=== PATIENT | female | born 1940 | race African-American/Black ===

== ENCOUNTER 2016-07-19 02:17 | Inpatient (IN) | payer OTHER ==
[2016-07-14 14:22] LABS: MANUAL DIFF NEEDED? NO
[2016-07-14 14:26] LABS: BASO% 0.3 % (0.0-0.8); EOS% 2.6 % (0.0-10.0); HEMATOCRIT 38.7 % (37.0-47.0); HEMOGLOBIN 12.6 g/dL (12.0-16.0); LYMPH# 0.87 X1000 (1.2-3.4); LYMPH% 22.8 % (20.5-51.1); MCH 30.7 PG (27-31); MCHC 32.6 g/dL (33-37); MCV 94.4 FL (81-99); MONO% 13.1 % (1.7-9.3); NEUT% 61.2 % (42.2-75.2); PLT 138 X1000 (130-400)
--- NOTE | 2016-07-14 14:52 | EKG Report ---
Test Performed on : 07/14/2016 1:34:38 PM Test Reason : PAT Blood Pressure : / mmHG Vent. Rate : 072 BPM Atrial Rate : 072 BPM P-R Int : 202 ms QRS Dur : 082 ms QT Int : 424 ms P-R-T Axes : 074 -13 072 degrees QTc Int : 464 ms Normal sinus rhythm. Minimal voltage criteria for LVH, may be normal variant Borderline ECG When compared with ECG of 20-FEB-2016 10:13, T wave inversion less evident in Lateral leads Confirmed by Trupti URIBE, Carlos Mckeon ([id number]) on 07/14/2016 4:49:29 PM
[2016-07-14 14:56] LABS: INR 1.05; PROTIME 10.7 Seconds (9.2-11.7); PTT 26.3 Seconds (22.0-36.0)
[2016-07-14 15:04] LABS: CALCIUM 9.4 mg/dL (8.8-10.2); POTASSIUM 3.6 mmol/L (3.5-5.1)
[2016-07-19] MEDS ORDERED: REGLAN ONE (06:49)
[2016-07-19] MEDS ORDERED: COLACE ONE (06:49)
[2016-07-19] MEDS ORDERED: PEPCID ONE (06:49)
[2016-07-19] MEDS ORDERED: LYRICA ONE (06:49)
[2016-07-19] MEDS ORDERED: 1/2 NS 500 ML ONE (06:50)
[2016-07-19] MEDS ORDERED: LR 0 ML ONE (06:50)
[2016-07-19] MEDS ORDERED: CELEBREX ONE (06:50)
[2016-07-19] MEDS ORDERED: KEFZOL 1 GM/D5W 50 ML ONE (06:51)
[2016-07-19] MEDS ORDERED: LOPRESSOR ONE (06:56)
[2016-07-19] MEDS ORDERED: APRESOLINE PO PRN (06:57)
[2016-07-19] MEDS ORDERED: IMDUR PO PRN (06:57)
[2016-07-19] MEDS ORDERED: MORPHINE IV PRN (06:59)
[2016-07-19] MEDS ORDERED: TOPROL XL ONE (06:59)
[2016-07-19] MEDS ORDERED: TORADOL ONE (07:30)
[2016-07-19] MEDS ORDERED: DURAMORPH ONE (07:30)
[2016-07-19] MEDS ORDERED: MARCAINE 0.25% PF/EPI 1:200,000 ONE (07:30)
[2016-07-19] MEDS ORDERED: CYKLOKAPRON 1,000 MG/NS 100 ML ONE (07:30)
[2016-07-19] MEDS ORDERED: SODIUM CHLORIDE 0.9% ONE (07:30)
[2016-07-19] MEDS ORDERED: NEOSPORIN G.U. IRRIGANT ONE (07:31)
[2016-07-19] MEDS ORDERED: EXPAREL 1.3% ONE (07:31)
[2016-07-19] MEDS ORDERED: CLAVE SECONDARY SET 11953 ONE (07:31)
[2016-07-19 08:41] LABS: CALCIUM 8.7 mg/dL (8.8-10.2)
[2016-07-19 09:01] LABS: POTASSIUM 5.2 mmol/L (3.5-5.1)
--- NOTE | 2016-07-19 09:31 | HISTORY AND PHYSICAL ---
CHIEF COMPLAINT: Left hip pain. HISTORY OF PRESENT ILLNESS: Ms. Tillman is a 75-year-old female with a history of left hip pain. She had a left bipolar hemiarthroplasty on 07/23/2015. She continues to have pain in that left hip. Radiographic image reveals that there is a nondisplaced fracture in the femur. We will be admitting her to the hospital today for a left total hip arthroplasty. PAST MEDICAL HISTORY: Hypertension, renal failure, cerebrovascular accident, osteoarthritis, hypothyroidism, congestive heart failure. PAST SURGICAL HISTORY: Bilateral cataract surgery, AV fistula of the left arm, bilateral carpal tunnel release, left breast lumpectomy, and a hysterectomy. FAMILY HISTORY: Noncontributory. SOCIAL HISTORY: She is . She denies using tobacco, denies using alcohol. HOME MEDICATIONS: Toprol-XL 50 mg p.o. daily, Imdur 60 mg p.o. p.r.n., omega-3 DHA EPA, D3, B12 tablet one p.o. daily, tramadol 50 mg p.o. b.i.d., lisinopril 20 mg p.o. b.i.d., Sensipar 60 mg p.o. b.i.d., Percocet 5/325 one p.o. p.r.n. for pain, folic acid/Dialyvite 3000 mg tablet 1 p.o. daily, Renvela 800 mg tablet 2 p.o. t.i.d., Apresoline 25 mg p.o. p.r.n. ALLERGIES: No known drug allergies. PRIMARY CARE PROVIDER: Dr. Long Hutchinson. TRAINING AND DEVELOPMENT REP: Dr. Morfin. REVIEW OF SYSTEMS: HEENT: Patient reports wearing glasses to read. Today, she reports having a scratchy throat. Cardiac: The patient denies any heart history. She denies any history of syncope or any chest pain. Pulmonary: The patient reports having some shortness of breath when she had the episodes of congestive heart failure or fluid overload in the past but she denies any coughing or wheezing today. Gastrointestinal: She denies any gastrointestinal problems, any nausea, vomiting, or diarrhea. Neurological: Patient reports some numbness and tingling in her hands and toes. Musculoskeletal: Patient reports having left hip pain. PHYSICAL EXAMINATION: GENERAL: The patient is awake, sitting up in bed. She is articulate and able to answer questions appropriately. Her daughter is at bedside. HEENT: Head is normocephalic, atraumatic. Pupils equal, round, and reactive to light. Nares patent. Throat without exudate. CARDIAC: S1 and S2 auscultated. There is a 2/6 systolic murmur. No rub or gallop noted. LUNGS: Clear to auscultation bilaterally in all lung haas. ABDOMEN: Soft, nontender, nondistended. Bowel sounds present in all quadrants. GENITOURINARY: Not examined. NEUROLOGICAL: Patient has good sensation to dull touch in all extremities. Cranial nerves 2-12 grossly intact. MUSCULOSKELETAL: Physical examination of the left hip reveals pain with palpation. She has pain with ambulation as well. IMPRESSION: Nondisplaced left femur fracture. PLAN: Left posterior total hip arthroplasty and hardware removal from left femur. The risks, benefits, and alternatives of the surgery were discussed with the patient including the risks of anesthesia, bleeding, damage to blood vessels, nerves, tendons, ligaments, and other imponderables. The patient agrees to proceed with the surgery at this time. Dictated by ALBA Masters for Huy Eldridge MD
[2016-07-19] MEDS ORDERED: NS 500 ML ONE (10:48)
--- NOTE | 2016-07-19 11:18 | Diag Imaging Result Document ---
PROCEDURE NAME: XRAY HIP UNILATERAL LT - 07/19/2016 PLAIN RADIOGRAPH OF THE LEFT HIP, 3 VIEWS: COMPARISON: None available. FINDINGS: There has been recent left hip arthroplasty. The arthroplasty hardware is in the expected position. There is no evidence of periprosthetic fracture. There are metallic ziyad at the skin surface laterally and a drainage catheter is in place. IMPRESSION: Satisfactory postoperative hip.
--- NOTE | 2016-07-19 11:21 | OPERATIVE NOTE ---
PROCEDURE DATE: 07/19/2016 PREOPERATIVE DIAGNOSIS: Nonunion left femoral neck fracture. POSTOP DIAGNOSIS: Nonunion left femoral neck fracture. PROCEDURE: 1. Left total hip replacement. 2. Removal of hardware left hip. SURGEON: Krystal Eldridge MD. MANAGER REPORTING: ALBA Card. ANESTHESIA: General. COMPLICATION: None. PROCEDURE IN DETAIL: This is a 75-year-old female with a nonunion of left femoral neck fracture presents for surgical hip replacement. Risks, benefits, and no guarantees were discussed, and she is willing to proceed. She was taken the operating room and satisfactory anesthesia obtained. The left hip was placed in the lateral position. All bony prominences were padded. The hip was prepped and draped in usual sterile fashion and a time-out taken to confirm operative site, procedure, and patient. A posterior approach was utilized to the left hip to facilitate hardware removal and resection of any fibrous tissue or scar tissue. Dissection was carried down over the greater trochanter and the deep fascia was split in line with a Charnley retractor inserted. Care was taken to avoid posterior dissection near the sciatic nerve. The three cannulated screws were removed from the lateral femur and a capsulotomy incision made and the femoral neck fracture identified. This was osteotomized with the oscillating saw to a fresh cut roughly 5 mm above the lesser trochanter. The femoral head was removed. Sequential reaming of the acetabulum undertaken up to a 51 reamer. A DePuy Pompey BRAUN coated 52 outer diameter cup was impacted in the acetabulum with secure press-fit fixation roughly 45 degrees of abduction and 20 degrees of anteversion. An additional 25 length screw was placed in the 12 o'clock position of the cup. A 0, 36 inner diameter head was placed on this. Afterwards, the femur was elevated and sequential broaching with a Miso Corail broach system undertaken up to a size 11 stem. This was noted to have good axial and rotational stability. High offset geometry with a +5 neck taper on the head revealed the best pentecostalism of leg length and stability. The trial stem was removed and the high offset size 11, 12 stem impacted in the proximal femur in roughly 10 degrees of anteversion with secure axial and rotational stability. A 36 outer diameter metal head with a +5 neck taper was impacted on this and the hip reduced. Final range of motion was assessed with no anterior instability and full extension with the knee at 90 degrees. Flexion of the hip to 90 degrees, neutral adduction, internal rotation roughly 50-60 degrees was undertaken without any dislocation. The wound was then copiously irrigated. A Hemovac drain was placed. The joint was injected with Exparel for pain management. The piriformis and short external rotators were repaired to the back of the hip. The deep fascia was repaired with #1 Vicryl, the subcutaneous with 2-0 Vicryl, and the skin with skin ziyad. Sterile dressings completed the closure and the patient was recovered from anesthesia and transferred to the recovery room in stable condition. No intraoperative complications were noted. Instrument count and sponge count was correct at the time of closure.
[2016-07-19] MEDS ORDERED: ROBINUL ONE (11:29)
[2016-07-19] MEDS ORDERED: XYLOCAINE-MPF 2% ONE (11:29)
[2016-07-19] MEDS ORDERED: ZEMURON ONE (11:29)
[2016-07-19] MEDS ORDERED: DECADRON ONE (11:29)
[2016-07-19] MEDS ORDERED: OFIRMEV 1000 MG/ISOTONIC SOLN 100 ML ONE (11:29)
[2016-07-19] MEDS ORDERED: NEOSTIGMINE ONE (11:29)
[2016-07-19] MEDS ORDERED: EPHEDRINE ONE (11:29)
[2016-07-19] MEDS ORDERED: AMIDATE ONE (11:29)
[2016-07-19] MEDS: NS 1,000 ML IV SCH (12:37)
[2016-07-19] MEDS: ULTRAM PO SCH ×2 (13:43→21:30)
[2016-07-19] MEDS: CELEBREX PO SCH (13:43)
[2016-07-19] MEDS: SENSIPAR PO SCH ×2 (13:44→21:30)
[2016-07-19] MEDS: PRINIVIL PO SCH ×2 (13:45→23:51)
[2016-07-19] MEDS: PATIENT'S OWN MED PO SCH ×2 (13:45)
[2016-07-19] MEDS: COLACE PO SCH ×2 (13:46→21:30)
[2016-07-19] MEDS: TOPROL XL PO SCH (13:51)
[2016-07-19] MEDS: RENAGEL PO SCH ×2 (13:52→18:33)
--- NOTE | 2016-07-19 14:11 | CONSULTATION ---
DATE OF CONSULTATION: 07/19/2016 PHYSICIAN CONSULTING: Dr. Eldridge. REASON FOR CONSULTATION: Medical management. PRIMARY CARE PROVIDER: Long Hutchinson. HISTORY OF PRESENT ILLNESS: Ms. Dunia Tillman is a 75-year-old female with a history of end-stage renal disease who receives dialysis Monday, , and Saturdays, hypertension, CVA, osteoarthritis, hypothyroidism, congestive heart failure who has been having a history of left hip pain. She had a left bipolar hemiarthroplasty on 07/23/2015 but continues to have pain from that. Imaging showed that she had a nondisplaced fracture in the femur. She is now postop from a left total hip arthroplasty. PAST MEDICAL HISTORY: Hypertension, end-stage renal disease receives dialysis on Monday, , Saturdays, CVA, osteoarthritis, hypothyroidism, congestive heart failure, TIAs, COPD. SURGICAL HISTORY: Bilateral cataracts, AV fistula left forearm, bilateral carpal tunnel, left breast lumpectomy and hysterectomy and a left bipolar hemiarthroplasty now with a left total hip arthroplasty. SOCIAL HISTORY: Denies tobacco, alcohol or illicit drug use. She is . FAMILY HISTORY: Noncontributory. REVIEW OF SYSTEMS: Fourteen-point review of systems were complete and all were negative except for those mentioned above HPI. She denied any nausea vomiting, diarrhea. Denied pain. Denied fever, chills. ALLERGIES: No known drug allergies. HOME MEDICATIONS: Imdur 60 mg p.o. daily as needed, metoprolol extended release 50 mg p.o., vitamin daily, hydralazine 25 mg, Klonopin 0.5 mg, Percocet 5 mg tablets, MiraLAX, Sensipar 60 mg p.o. twice daily, Renvela 1 tab p.o. 3 times a day. LABORATORY DATA: Labs were obtained back on 07/14/2016. White blood cells 3.82, hemoglobin 12, hematocrit 38, platelet count 138,000, INR 1.05, PTT is 26.3. She had a BMP today which showed sodium of 139, potassium 5.2, BUN 65, creatinine 7.7, glucose 81, calcium 8.7. IMAGING: Hip x-ray, satisfactory postoperative hip. PHYSICAL EXAMINATION: Vital Signs: Temperature 98.3 degrees, heart rate 68, respiratory rate 12, blood pressure 134/60, O2 saturation 97% on 2 L nasal cannula. She is 5 feet 3 inches tall, 140 pounds, BMI 24.8. General: Ms. Tillman is a 75-year-old female. She is in no acute distress, slightly drowsy postoperative but easily awakes and answers all questions appropriately. HEENT: Atraumatic, normocephalic. Pupils equal, round, reactive to light. Extraocular movements intact. Mucous membranes moist. Neck: No JVD or carotid bruits noted. Cardiovascular: S1, S2. Regular rate and rhythm. No rubs, gallops, murmurs. Pulmonary: Clear to auscultate. Bilateral breath sounds. No accessory muscle use or work of breathing noted. GI: Soft, nontender, hypoactive bowel sounds. Neuro: Oriented x4. Moves all extremities equally, slightly drowsy. Extremities: Left arm forearm with AV fistula with positive bruit and thrill. No edema noted, +2 dorsalis and radial pulses. Skin: Warm, dry, intact. Left hip dressing intact. ASSESSMENT AND PLAN: 1. Left hip pain now status post left hip total arthroplasty by Dr. Eldridge who is following. She will have DVT prophylaxis of Xarelto and pain medication management, antiemetics as needed. 2. End-stage renal disease, receives dialysis on Tuesdays, and Saturdays. Patient states that she last had dialysis Monday, she is actually due for dialysis today. She is hyperkalemic and her creatinine up quite a bit 7.7 with a BUN of 65. Dr. Morfin has been consulted. 3. Hypertension. Continue home medications. 4. Cerebrovascular accident history with transient ischemic attack history. 5. Osteoarthritis. 6. Hypothyroidism. Continue Synthroid. 7. Congestive heart failure. Stable. 8. Chronic obstructive pulmonary disease no exacerbation. 9. Hyperkalemia but will likely need dialysis. 10. Deep vein thrombosis prophylaxis Xarelto. 11. Gastrointestinal prophylaxis proton pump inhibitor. Dictated by ALBA Henderson for Wang Trevizo MD
--- NOTE | 2016-07-19 14:34 | EKG Report ---
Test Performed on : 07/19/2016 1:32:44 PM Test Reason : hyperkalemia Blood Pressure : / mmHG Vent. Rate : 061 BPM Atrial Rate : 061 BPM P-R Int : 178 ms QRS Dur : 098 ms QT Int : 502 ms P-R-T Axes : 079 012 072 degrees QTc Int : 505 ms Normal sinus rhythm. Prolonged QT Abnormal ECG When compared with ECG of 14-JUL-2016 13:34, No significant change was found Confirmed by Trupti URIBE, Carlos Mckeon ([id number]) on 07/20/2016 3:23:21 PM
[2016-07-19] MEDS ORDERED: NS 2,000 ML ONE (15:22)
[2016-07-19] MEDS ORDERED: HEPARIN ONE (15:22)
[2016-07-19] MEDS: KEFZOL 1 GM/D5W 50 ML IV SCH (15:35)
[2016-07-19] MEDS ORDERED: NS 1,000 ML ONE (19:04)
[2016-07-19] MEDS: PERIDEX MT SCH (21:30)
[2016-07-20] MEDS: KEFZOL 1 GM/D5W 50 ML IV SCH ×2 (00:04→01:36)
[2016-07-20] MEDS ORDERED: KEFZOL IM ONE (01:35)
[2016-07-20] MEDS ORDERED: STERILE WATER INJ. ONE (02:01)
[2016-07-20 06:06] LABS: MANUAL DIFF NEEDED? NO
[2016-07-20 06:25] LABS: BASO% 0.2 % (0.0-0.8); EOS# 0.06 X1000 (0.0-0.7); EOS% 0.9 % (0.0-10.0); HEMATOCRIT 22.6 % (37.0-47.0); HEMOGLOBIN 7.4 g/dL (12.0-16.0); LYMPH# 0.48 X1000 (1.2-3.4); LYMPH% 7.3 % (20.5-51.1); MCH 30.3 PG (27-31); MCHC 32.7 g/dL (33-37); MCV 92.6 FL (81-99); MONO# 0.78 X1000 (0.11-0.59); MONO% 11.9 % (1.7-9.3); NEUT% 79.7 % (42.2-75.2); PLT 107 X1000 (130-400); RBC 2.44 XMIL (4.2-5.4)
[2016-07-20 06:41] LABS: ALBUMIN 2.8 g/dL (3.5-5.0); CALCIUM 7.7 mg/dL (8.8-10.2); MAGNESIUM 2.1 mg/dL (1.5-2.7); POTASSIUM 4.8 mmol/L (3.5-5.1); TOTAL BILIRUBIN 0.26 mg/dL (0.20-1.00)
[2016-07-20] MEDS: XARELTO PO SCH (06:48)
--- NOTE | 2016-07-20 08:00 | PROGRESS NOTE ---
DATE: 07/20/2016 Ms. Tillman is postop day 1 total hip replacement. The incisions are clean and dry. There is no evidence of infection or DVT. Vital signs are relatively stable. Her hematocrit is 22 due to acute blood loss anemia. We will plan on keeping her today and pursuing possible inpatient rehab on Monday. Will recheck her hematocrit tomorrow. She denies any dizziness or shortness of breath or other symptoms currently.
[2016-07-20] MEDS: SENSIPAR PO SCH ×2 (08:13→22:55)
[2016-07-20] MEDS: RENAGEL PO SCH ×3 (08:13→16:56)
[2016-07-20] MEDS: CELEBREX PO SCH (08:13)
[2016-07-20] MEDS: PERIDEX MT SCH ×2 (08:13→22:56)
[2016-07-20] MEDS: COLACE PO SCH ×2 (08:14→22:56)
[2016-07-20] MEDS: TOPROL XL PO SCH ×2 (08:14→08:20)
[2016-07-20] MEDS: PRINIVIL PO SCH ×3 (08:14→22:57)
[2016-07-20] MEDS: ULTRAM PO SCH ×3 (08:15→22:56)
[2016-07-20] MEDS: PATIENT'S OWN MED PO SCH ×2 (08:16→08:17)
--- NOTE | 2016-07-20 09:30 | CONSULTATION ---
DATE OF CONSULTATION: 07/20/2016 REASON FOR ADMISSION: Planned revision of left total hip arthroplasty. REASON FOR CONSULTATION: End-stage renal disease management and assist with medical care. CONSULTING PHYSICIAN: Dr. Eldridge. HISTORY OF PRESENT ILLNESS: This is a 75-year-old female, well known to our service for end-stage renal disease on hemodialysis on a Monday, , Monday schedule. She had an old femur fracture that required revision to the arthroplasty. She presented to the hospital yesterday for the planned revision. She underwent surgery well and afterwards was dialyzed without difficulty. She did have some hypotension and fluid volume removal was somewhat minimal otherwise. This morning, she is awake and alert and has no complaints and states that she feels much better than expected. PAST MEDICAL HISTORY: End-stage renal disease on hemodialysis Monday, , Monday, hypertension, history of CVA, osteoarthritis, hyperparathyroidism, hyperphosphatemia, hypothyroidism and congestive heart failure. PAST SURGICAL HISTORY: AV fistula left upper extremity. Bilateral carpal tunnel release. Left hip arthroplasty. Left breast lumpectomy. Hysterectomy. Cataract surgery. ALLERGIES: No known drug allergies. HOME MEDICATIONS: Metoprolol isosorbide, multivitamin, Sensipar, Percocet, Dialyvite, Renvela, Apresoline, MiraLAX and Klonopin. FAMILY HISTORY: Noncontributory. SOCIAL HISTORY: No EtOH, tobacco or illicit drug use. She does have prescription drug coverage. She is . She has family that assist with her care. REVIEW OF SYSTEMS: With pertinent positives noted above in the HPI. PHYSICAL EXAMINATION: Vital Signs: Temperature 97.8 degrees, pulse 76, respiratory rate 16, blood pressure 106/40. Intake 168 mL; output 245 mL. General: This is an elderly female, sitting up in bed currently eating breakfast. She is awake, alert, oriented x4. She is in no acute distress. HEENT: Normocephalic, atraumatic. Conjunctivae are pink. Arcus senilis noted. CORA. Oral mucosa moist. Neck: Supple. There is no JVD in the upright position. Trachea midline. Cardiovascular: Reveals a regular rate and rhythm with a systolic murmur. No gallop appreciated. Pulmonary: She has equal excursion. She is clear bilaterally. Abdomen: Soft with positive bowel sounds. : Not inspected. She has minimal void with hemodialysis assist. Extremities: Left extremity with dressing noted. Right lower extremity has no edema. She is moving upper extremities. She has an AV fistula noted to the left upper extremity with a positive thrill. Integumentary: Skin is warm and dry without rash or lesion. Neuro: Grossly nonfocal. Awake alert, and oriented x4. LAB DATA: WBC of 6.5, hemoglobin is 7.4, hematocrit 22.6. Sodium 139, potassium 4.8, CO2 28, BUN 32, creatinine 4.7, calcium 7.7, phosphorus 5.1, albumin 2.8. ASSESSMENT AND PLAN: 1. End-stage renal disease management. The patient was dialyzed yesterday as per her routine. Again, we were unable to pull any significant fluid secondary to her blood pressure. She has no clinical evidence of fluid overload today. We will plan to dialyze her as her routine tomorrow. Check labs in the morning predialysis to determine bath. 2. Anemia. The patient did undergo arthroplasty. We will continue Epogen while she is here in the hospital and transfuse on dialysis if hemoglobin does not improve tomorrow. 3. Electrolytes, acid-base balance, acceptable. Again, check labs in the morning prior to dialysis. 4. Fluid volume. She is not overloaded. 5. Hypertension, controlled. 6. Hip arthroplasty followed by Dr. Eldridge. Seen, data reviewed, discussed with Pineda Marte on 07/20/16. I agree with the above assessment and plan of care. rg Dictated by ALBA Cruz for Jerardo Morfin MD [facility]
--- NOTE | 2016-07-20 11:35 | PROGRESS NOTE ---
DATE: 07/20/2016 SUBJECTIVE: Today Ms. Duque was sitting up in a chair. She refers to be doing fine. She has no complaints. OBJECTIVE: Vital signs: Blood pressure is 124/47, pulse of 68, respirations 16, temperature 98.1 degrees. General Examination: Ms. Tillman is a 75-year-old female. She was sitting up in chair. Is in no distress. HEENT: Mucosa is pink and moist. Anicteric. Acyanotic. Neck: Supple. Chest: Good air entry bilaterally. No crepitations. No rhonchi. Cardiovascular: Regular rate and rhythm. No murmurs, no rubs. Extremities: No pedal edema. Abdomen: Soft, nontender. Musculoskeletal: The left hip has some sterile dressing over it and there is a wound VAC. There is a drainage. There is also a fistula on the left forearm. LABORATORY DATA: WBC is 6.56, hemoglobin is 7.4, platelet count of 107,000. Coags are normal. Chemistry reviewed, consistent with end-stage renal disease. ASSESSMENT: 1. Left femoral nondisplaced fracture, status post left posterior total hip arthroplasty and hardware removal. Today is day 1. Postoperatively, the patient seems to be doing relatively fine. 2. Anemia of acute blood loss. Hemoglobin and hematocrit has dropped; however, the patient is asymptomatic. We would therefore observe. If it draws below 7, we will transfuse accordingly. 3. End stage renal disease. Patient is on dialysis Tuesdays, , and Monday is nephrology is on board. 4. Hypertension, stable. 5. Hypothyroidism, noted. 6. Chronic obstructive pulmonary disease. No exacerbation. GENERAL PLAN: The patient has been evaluated by Orthopedics. We discussed the possibility of her going to a rehab. That will be trending her hemoglobin and hematocrit. If it drops below 7, we will transfuse.
[2016-07-20] MEDS: NS 1,000 ML IV SCH (12:13)
[2016-07-20] MEDS ORDERED: NS 500 ML IV ONE (19:08)
[2016-07-21 05:51] LABS: MANUAL DIFF NEEDED? NO
[2016-07-21 05:56] LABS: BASO% 0.2 % (0.0-0.8); EOS# 0.17 X1000 (0.0-0.7); EOS% 3.8 % (0.0-10.0); HEMATOCRIT 20.9 % (37.0-47.0); HEMOGLOBIN 6.6 g/dL (12.0-16.0); LYMPH# 0.73 X1000 (1.2-3.4); LYMPH% 16.2 % (20.5-51.1); MCH 29.5 PG (27-31); MCHC 31.6 g/dL (33-37); MCV 93.3 FL (81-99); MONO# 0.57 X1000 (0.11-0.59); MONO% 12.6 % (1.7-9.3); NEUT% 67.2 % (42.2-75.2); PLT 99 X1000 (130-400); RBC 2.24 XMIL (4.2-5.4)
[2016-07-21 06:13] LABS: ALBUMIN 2.8 g/dL (3.5-5.0); CALCIUM 7.5 mg/dL (8.8-10.2); MAGNESIUM 2.2 mg/dL (1.5-2.7); POTASSIUM 5.1 mmol/L (3.5-5.1); TOTAL BILIRUBIN 0.25 mg/dL (0.20-1.00); TOTAL PROTEIN 5.1 g/dL (6.3-8.3)
[2016-07-21] MEDS: XARELTO PO SCH (06:17)
[2016-07-21] MEDS ORDERED: NS 2,000 ML MISC PRN (07:23)
[2016-07-21] MEDS: COLACE PO SCH ×2 (08:36→22:28)
[2016-07-21] MEDS: RENAGEL PO SCH ×3 (08:36→17:12)
[2016-07-21] MEDS: SENSIPAR PO SCH ×2 (08:36→22:28)
[2016-07-21] MEDS: CELEBREX PO SCH (08:36)
[2016-07-21] MEDS: PERIDEX MT SCH ×2 (08:38→22:28)
[2016-07-21] MEDS: PATIENT'S OWN MED PO SCH ×2 (08:39)
[2016-07-21] MEDS: TOPROL XL PO SCH (08:39)
[2016-07-21] MEDS: PRINIVIL PO SCH ×2 (08:39→22:28)
[2016-07-21] MEDS: ULTRAM PO SCH ×2 (08:40→22:27)
[2016-07-21] MEDS ORDERED: NS 2,000 ML ONE (13:09)
--- NOTE | 2016-07-21 16:19 | PROGRESS NOTE ---
DATE: 07/21/2016 SUBJECTIVE: Today Ms. Tillman referred to be doing fine. She was in bed. She did not have any major complaints. OBJECTIVE: Vital signs: Blood pressure is 110/52, pulse of 65, respirations 16 and temperature 97.5 degrees. General: Ms. Tillman is 75 years old. She was in bed. Not in any distress. HEENT: Mucosa is pink and moist. Anicteric. Acyanotic. Neck: Supple. Chest: Good air entry bilaterally. No crepitations. No rhonchi. Cardiovascular: Regular rate and rhythm. No murmurs, no rubs. No gallops. Abdomen: Soft, nontender. Extremities: There is a sterile dressing over the left hip. No pedal edema. There is an AV fistula on the left forearm. PRODUCT DEVELOPMENT SPECIALIST: Patient is alert and oriented x4. LABORATORY DATA: WBC is 4.51, hemoglobin is 6.6, platelet count of 99. Chemistry is reviewed, unremarkable except for consistent with end-stage renal disease. ASSESSMENT: 1. Left femoral nondisplaced fracture status post left posterior total hip arthroplasty and hardware removal. Today is day 2 postoperatively. She seems to be doing fine. 2. Anemia of acute blood loss. Hemoglobin dropped to 6.6. We are giving the patient a unit of packed red blood cell transfusion. 3. Endstage renal disease. Patient is on dialysis Monday//Monday. Nephrology is on board. 4. Hypertension, controlled. 5. Hypothyroidism. Will continue with supplement. 6. Chronic obstructive pulmonary disease currently controlled, not in exacerbation. GENERAL PLAN: The patient seems to be doing fine. She is going to get dialysis today and also blood transfusion today. She will continue doing physical therapy. There has been consultation to the social worker delinquency prevention for rehab placement.
--- NOTE | 2016-07-21 16:32 | PROGRESS NOTE ---
DATE: 07/21/2016 TIME SEEN: 0805 SUBJECTIVE: Ms. Tillman is resting quietly in bed. She is sitting up for breakfast. She denies any chest pain. No increased work of breathing. Slight discomfort to her left hip. OBJECTIVE: Vital Signs: Her most recent vital signs are temperature 98.9 degrees, blood pressure 123/48, heart rate 76, and respirations 18. She is on room air. Last recorded saturation 93%. She has had 1140 in. She has had zero out, with need for dialysis. LABORATORIES: Sodium 136, potassium 5.1, chloride 95, CO2 of 25, BUN 44, creatinine 6.1, glucose 89. Her anion gap is 16. Her calcium is 7.5, albumin 2.8, magnesium 2.2, phosphorus 5.4. White count 4.51, hemoglobin 6.6, hematocrit 20.9, with a platelet count of 99,000. PHYSICAL EXAMINATION: General: This is a 75-year-old female. She is resting quietly in bed. She is in no acute distress. Skin: Warm and dry. HEENT: Normocephalic, atraumatic. Conjunctivae pink. She has arcus senilis. Pupils are equal and reactive to light. Mucous membranes are moist. Neck: Supple. Trachea midline. No JVD. Cardiovascular: She has regular rate and rhythm. She has a systolic murmur. No gallop appreciated. Lungs: Clear to auscultation. Equal excursion. She is on room air. Abdomen: Round, soft, nontender. Positive bowel sounds. Extremities: Has a dressing to the left hip. The right has no edema, no clubbing or cyanosis. AV fistula is noted to the left upper extremity. Positive thrill. No drainage noted. Integumentary: Skin is warm and dry, without rashes or lesions. Neurologic: Alert and oriented x3. ASSESSMENT AND PLAN: 1. End-stage renal disease. Patient is due for her routine dialysis today. We will place her on a 3K bath. She is to dialyze for 3-1/2 hours. We will attempt to pull her to her dry weight. 2. Electrolytes. These are stable. 3. Acid-base balance. This is stable. 4. Anemia. Patient has recently undergone arthroplasty. Her hemoglobin has dropped. She continues on her Epogen. We will give her 2 units of packed red blood cells on dialysis today. 5. Left hip arthroplasty. This is followed by Dr. Eldridge. I would to thank you for allowing us to follow with this patient. Seen, data reviewed, discussed with Lobo Ny on 07/21/16. I agree with the abive assessment and plan of care. rg Dictated by ALBA Mario for Jerardo Morfin MD [facility]
[2016-07-21] MEDS: NORCO-10 PO PRN (19:37)
[2016-07-22] MEDS: XARELTO PO SCH (05:37)
[2016-07-22 06:02] LABS: MANUAL DIFF NEEDED? NO
[2016-07-22 06:18] LABS: BASO% 0.2 % (0.0-0.8); EOS% 3.2 % (0.0-10.0); HEMATOCRIT 25.5 % (37.0-47.0); HEMOGLOBIN 8.3 g/dL (12.0-16.0); IMM GRAN# 0.02 X1000 (0.0-0.04); IMM GRAN% 0.3 % (0.0-0.5); LYMPH# 0.68 X1000 (1.2-3.4); LYMPH% 10.9 % (20.5-51.1); MCH 29.7 PG (27-31); MCHC 32.5 g/dL (33-37); MCV 91.4 FL (81-99); MONO# 1.04 X1000 (0.11-0.59); MONO% 16.6 % (1.7-9.3); MPV 11.5 FL (7.4-10.4); NEUT% 68.8 % (42.2-75.2); PLT 108 X1000 (130-400); RBC 2.79 XMIL (4.2-5.4)
[2016-07-22 06:29] LABS: AGAP 13; ALKALINE PHOSPHATASE 51 U/L (32-104); BUN 32 mg/dL (8-22); CALCIUM 7.5 mg/dL (8.8-10.2); CHLORIDE 96 mmol/L (98-107); COSMO 278; GOT 24 U/L (10-30); GPT < 5 U/L (10-36); MAGNESIUM 2.1 mg/dL (1.5-2.7); POTASSIUM 4.6 mmol/L (3.5-5.1); SODIUM 136 mmol/L (136-145); TCO2 27 mmol/L (25-35); TOTAL BILIRUBIN 0.64 mg/dL (0.20-1.00); TOTAL PROTEIN 5.3 g/dL (6.3-8.3)
[2016-07-22] MEDS: PRINIVIL PO SCH (08:23)
[2016-07-22] MEDS: COLACE PO SCH (08:23)
[2016-07-22] MEDS: RENAGEL PO SCH ×2 (08:23→12:23)
[2016-07-22] MEDS: SENSIPAR PO SCH (08:23)
[2016-07-22] MEDS: TOPROL XL PO SCH (08:23)
[2016-07-22] MEDS: PERIDEX MT SCH (08:24)
--- NOTE | 2016-07-22 09:39 | DISCHARGE SUMMARY ---
ADMISSION DATE: 07/19/2016 DISCHARGE DATE: 07/22/2016 ADMITTING DIAGNOSIS: Nonunion left femoral neck fracture. ADDITIONAL DIAGNOSES: 1. Hypertension. 2. Renal failure. 3. Cerebrovascular accident. 4. Arthritis. 5. Hypothyroidism. 6. Congestive heart failure. 7. Chronic obstructive pulmonary disease. DISCHARGE DIAGNOSES: 1. Nonunion left femoral neck fracture. 2. Hypertension. 3. Renal failure. 4. Cerebrovascular accident. 5. Arthritis. 6. Hypothyroidism. 7. Congestive heart failure. 8. Chronic obstructive pulmonary disease. ADMITTING HISTORY AND HOSPITAL COURSE: Ms. Tillman is a 75-year-old female with a history of left hip pain and she had a left hip pinning back on 07/23/2015. She continued to have pain in that hip and developed nonunion. She was admitted to the hospital for a left total hip replacement and removal of existing hardware. The procedure went well. After the procedure she remained afebrile. Her vital signs remained stable. She did have some anemia after the surgery. She had a blood transfusion and nephrology is following her hematocrit and hemoglobin as well as taking care of her dialysis needs. Ms. Tillman wants to go home and have Home Health. We will plan on discharging her today with Home Health coming out to work with her physical therapy as well. She will need to follow up with Dr. Eldridge in about 10 days to have her ziyad removed. DISCHARGE MEDICATIONS: Toprol XL 50 mg p.o. p.r.n., Imdur 60 mg p.o. p.r.n. daily, Animi-3 capsule one p.o. daily, Sensipar 60 mg p.o. b.i.d., Dialyvite 3,000 mg tablet one p.o. daily, Renvela two tablets p.o. tid, Apresoline 25 mg p.o. p.r.n., 0.5 mg p.o. p.r.n., Xarelto 10 mg p.o. daily for 3 weeks, and [place] 10 mg 1-2 p.o. every 4-6 hours p.r.n. for pain. DISCHARGE INSTRUCTIONS: Ms. Tillman is to be discharged home today after Dr. Morfin clears her. We will have physical therapy come out and work with her and she will begin a physical therapy regimen at home. She will need to have the ziyad removed so she will follow up with Dr. Eldridge in about 10 days. I discussed with her that she was going home with a couple of new medications and went over those with her and explained to her that she should notify us if she has any worsening signs or symptoms and if she has any questions to call the office. Dictated by ALBA Masters for Huy Eldridge MD
[2016-07-22] MEDS: ULTRAM PO SCH (09:51)
[2016-07-22] MEDS: PATIENT'S OWN MED PO SCH ×2 (09:51→09:53)
[2016-07-22] MEDS: NORCO-10 PO PRN (09:51)
[2016-07-22 11:49] VITALS: BP 135/46
--- NOTE | 2016-07-22 13:49 | PROGRESS NOTE ---
DATE: 07/22/2016 TIME SEEN: 0740 SUBJECTIVE: Ms. Tillman is resting quietly in bed. She is waiting for her breakfast. She denies chest pain or increased work of breathing. Complains of slight hip discomfort on the left. OBJECTIVE: Her most recent vital signs are temperature 98.4 degrees, blood pressure 163/58, heart rate 73, respirations 16. She is on room air. Her last recorded saturation is 99%. She has had 1220 in. She has had 3300 out on dialysis yesterday. LABS: This a.m. sodium 136, potassium 4.6, chloride 96, CO2 27, BUN 32, creatinine 3.8, glucose 82. Her anion gap is 13, calcium 7.5, phosphorus 3.6, magnesium 2.1 with an albumin of 3. Her white count 6.26, hemoglobin is 8.3, hematocrit 25.5, with a platelet count of 108,000. PHYSICAL EXAMINATION: General: This is a 75-year-old female. She is currently resting in bed. She is in no acute distress. Skin: Warm and dry. HEENT: Normocephalic, atraumatic. Conjunctiva is pink. She has CORA. Mucous membranes moist. Neck : Supple. Trachea midline. No JVD. Cardiovascular: Regular rate and rhythm. She is with soft systolic murmur. No gallop appreciated. Lungs: Clear to auscultation anterior. Equal excursion on O2. Abdomen: Round, soft, nontender. Positive bowel sounds. Extremities: Left is slightly edematous secondary to dressing on her left hip due to hip repair. Otherwise no clubbing or cyanosis. Integumentary: No rashes or lesions evident. Neurological: Alert and oriented x3. ASSESSMENT AND PLAN: 1. End-stage renal disease. Patient is due for her routine dialysis treatment in the a.m. She is a Monday. We will plan for dialysis if patient remains in the hospital. 2. Electrolytes. These are stable. 3. Acid-base balance. This is stable. 4. Anemia. Patient had a hemoglobin of 6.3 yesterday. She was transfused of 2 units of packed red blood cells. She has only come up to 8.3 today. We will recheck a hemoglobin later this afternoon. 5. Left hip arthroplasty. This is followed by Dr. Jazmyn. Patient appears to be doing well. I would like to thank you for allowing us to follow with this patient. Seen, data reviewed, discussed with Lobo Ny on 07/22/16. I agree with the above assessment and plan of care. rg Dictated by ALBA Mario for Jerardo Morfin MD [facility]
--- NOTE | 2016-07-22 16:49 | PROGRESS NOTE ---
DATE: 07/22/2016 SUBJECTIVE: The patient states that she is feeling much better. She was sitting on a chair when I examined her. She was not complaining of any specific complaint at this moment. OBJECTIVE: Vital Signs: Temperature 98 degrees, pulse 58, respiratory rate 16, blood pressure 135/46, oxygen saturation 99% on room air. HEENT: Head normocephalic. No trauma. PERRLA. Neck: Supple. No JVD. No masses. Central trachea. Chest: Clear to auscultation. No wheezing. No rales. Cardiovascular: RRR. No murmurs. Abdomen: Soft, nontender, nondistended. No hepatosplenomegaly. Extremities: There is a sterile dressing over the left hip, no sign of bleed or infection. No penal edema. There is an AV fistula on the left forearm. Neurological: The patient is alert and oriented x4. No focal neurological deficits. LABORATORY: WBC 6.2, hemoglobin 8.8, hematocrit 25.5, platelets 108,000. Sodium 136, potassium 4.6, chloride 96, bicarbonate 27, BUN 32, creatinine 0.38, glucose 282, calcium 7.5. ASSESSMENT AND PLAN: 1. Left femoral nondisplaced fracture status post left total hip arthroplasty and hardware removal postoperative day #3. She seems to be doing fine. Physical Therapy has been on board. Probably this patient will be discharged today. 2. Anemia of acute blood loss status post PRBC, the hemoglobin today is much better. 3. End-stage renal disease. As per Nephrology Department. 4. Hypertension. Controlled. 5. Hypothyroidism. Continue with levothyroxine. 6. Chronic obstructive pulmonary disease, not in exacerbation at this moment.
== END 2016-07-22 17:44 | disposition home health service (06) | DRG 466 ==
LOC: SURHOLD 02:17 → 4N 11:00
PROVIDERS: ADMIT Orthopaedic Surgery Adult Reconstructive Orthopaedic Surgery; ATTEND Orthopaedic Surgery Adult Reconstructive Orthopaedic Surgery
PROC: 0SRB02A Replacement of Left Hip Joint with Metal on Polyethylene Synthetic Substitute, Uncemented, Open Approach (ICD-10-PCS; principal; 2016-07-19 08:00)
PROC: 0SPB0JZ Removal of Synthetic Substitute from Left Hip Joint, Open Approach (ICD-10-PCS; 2016-07-19 08:00)
PROC: 30233N1 Transfusion of Nonautologous Red Blood Cells into Peripheral Vein, Percutaneous Approach (ICD-10-PCS; 2016-07-20)
PROC: 5A1D00Z (ICD-10-PCS; 2016-07-21)
DX: S72.002A Fracture of unspecified part of neck of left femur, initial encounter for closed fracture (principal); N18.6 End stage renal disease; I13.2 Hypertensive heart and chronic kidney disease with heart failure and with stage 5 chronic kidney disease, or end stage renal disease; E87.5 Hyperkalemia; E83.39 Other disorders of phosphorus metabolism; D62 Acute posthemorrhagic anemia; J44.9 Chronic obstructive pulmonary disease, unspecified; I50.9 Heart failure, unspecified; Z86.73 Personal history of transient ischemic attack (TIA), and cerebral infarction without residual deficits; Z99.2 Dependence on renal dialysis; M19.90 Unspecified osteoarthritis, unspecified site; E21.3 Hyperparathyroidism, unspecified; E03.9 Hypothyroidism, unspecified; Z96.642 Presence of left artificial hip joint; Z79.899 Other long term (current) drug therapy
CPT/HCPCS: 80048; 80053; 83735; 84100; 85018; 85025; 85610; 85730; 86850; 86900; 86901; 86920; 88305; 88311; 93005; 93010; 94761; 94799; C9290; J0131; J0690; J1100; J1644; J1885; J2274; J7030; J7040; J7120; P9016; 97110-GP; 97116-GP; 97530-GP; J2710; S0020

== ENCOUNTER 2019-08-26 17:54 | Inpatient (IN) ==
--- NOTE | 2019-08-26 19:51 | Diag Imaging Result Doc PS360 ---
EXAM: CHEST-1 VIEW 08/26/2019 HISTORY: sob TECHNIQUE: AP portable at 1930 COMMENT: Compared to 04/21/2017 the opacity which was previously present in the left lower lobe has resolved. Otherwise are has been no significant change. The pulmonary vascularity is prominent. There is a platelike opacity on the left which is presumably fibrotic as it has been present since the previous study. IMPRESSION: Cardiomegaly. Increased pulmonary vascularity. Electronically signed by Lazaro Ramírez 08/26/2019 7:49 PM
--- NOTE | 2019-08-26 19:56 | Diag Imaging Result Doc PS360 ---
EXAM: CT HEAD W/O CONTRAST 08/26/2019 HISTORY: speech difficulty, possible CVA TECHNIQUE: This exam was performed using automated exposure control, adjustment of mA or kV according to patient size, and/or use of iterative reconstruction technique. COMMENT: The current study is compared with that of 08/24/2019. There is a small lacune in the inferior basal ganglia on the left. There is some patchy lucency in the periventricular white matter of the posterior right frontal lobe. There is no evidence of mass effect, bleed, or abnormal extra-axial fluid collection. The visualized paranasal sinuses are clear. There is hyperostosis frontalis interna. The calvarium is intact. Compared to the previous examination there has been no significant change. IMPRESSION: Chronic ischemic microvascular changes. No evidence of acute disease. Electronically signed by Lazaro Ramírez 08/26/2019 7:54 PM
--- NOTE | 2019-08-26 20:06 | EKG Report ---
Test Performed on : 08/26/2019 6:30:41 PM Test Reason : sob Blood Pressure : / mmHG Vent. Rate : 101 BPM Atrial Rate : 300 BPM P-R Int : 000 ms QRS Dur : 090 ms QT Int : 408 ms P-R-T Axes : 000 010 180 degrees QTc Int : 529 ms Atrial flutter. with variable AV block. with premature ventricular or aberrantly conducted complexes. Low voltage QRS Cannot rule out Anteroseptal infarct , age undetermined ST & T wave abnormality, consider inferolateral ischemia Prolonged QT Abnormal ECG When compared with ECG of 27-FEB-2017 10:18, Significant changes have occurred Unconfirmed Result
[2019-08-26 20:30] LABS: BASO# 0.03 X1000 (0.0-0.2); BASO% 0.5 % (0.0-0.8); EOS# 0.03 X1000 (0.0-0.7); EOS% 0.5 % (0.0-10.0); HEMATOCRIT 35.7 % (37.0-47.0); HEMOGLOBIN 11.8 g/dL (12.0-16.0); LYMPH# 0.92 X1000 (1.2-3.4); LYMPH% 15.1 % (20.5-51.1); MCH 28.3 PG (27-31); MCHC 33.1 g/dL (33-37); MCV 85.6 FL (81-99); MONO# 0.66 X1000 (0.11-0.59); MONO% 10.8 % (1.7-9.3); MPV 10.9 FL (7.4-10.4); NEUT# 4.45 X1000 (1.4-6.5); NEUT% 73.1 % (42.2-75.2); PLT 119 X1000 (130-400); RBC 4.17 XMIL (4.2-5.4); WBC 6.09 X1000 (4.8-10.8)
[2019-08-26 20:36] LABS: INR 1.21; PROTIME 15.5 Seconds (11.0-16.0)
[2019-08-26 20:38] LABS: PTT 32.2 Seconds (22.3-41.8)
[2019-08-26 21:55] LABS: ALB/GLOB RATIO 1.5; ALBUMIN 3.8 g/dL (3.5-5.0); CALCIUM 8.4 mg/dL (8.8-10.2); POTASSIUM 4.1 mmol/L (3.5-5.1); TOTAL BILIRUBIN 0.84 mg/dL (0.20-1.00); TOTAL PROTEIN 6.3 g/dL (6.3-8.3)
[2019-08-26 21:58] LABS: CREATININE 6.4 mg/dL (0.5-0.9)
--- NOTE | 2019-08-26 22:30 | PROVIDER DOCUMENTATION ---
This chart was entered by Muna Du Scribe, acting as scribe for Norberto Fernandes MD. HPI-Respiratory General - General Chief Complaint: Shortness of Breath Stated Complaint: A-FIB WITH RVR Time Seen by Provider: 08/26/19 19:17 Source: patient Allergies/Adverse Reactions: Patient Allergies Allergy/AdvReac Type Severity Reaction Status Date / Time No Known Allergies Allergy Verified 08/26/19 18:41 Home Medications: Home Medication List Medication Instructions Recorded Confirmed Last Taken Type Sevelamer Carbonate [Renvela] 3 tab PO TID 07/14/16 08/26/19 08/25/19 History Cinacalcet HCl [Sensipar] 60 mg PO BID 02/27/17 08/26/19 08/25/19 History Apixaban [Eliquis] 2.5 mg PO BID 04/12/17 08/26/19 08/25/19 History Folic Acid/B Cplx/C/Selen/Zinc 1 each PO DAILY 04/12/17 08/26/19 08/25/19 History [Dialyvite 3,000 Tablet] Acetaminophen [Tylenol] 1,000 mg PO Q6H tablet 04/21/17 08/26/19 08/25/19 Rx Celecoxib [Celebrex] 200 mg PO BID capsule 04/21/17 08/26/19 08/25/19 Rx Docusate Sodium [Colace] 100 mg PO BID capsule 04/21/17 08/26/19 08/25/19 Rx Oxycodone I.r. [Oxy Ir] 5 mg PO Q3H PRN PRN tablet 04/21/17 08/26/19 08/25/19 Rx Oxycodone I.r. [Oxy Ir] 10 mg PO Q3H PRN PRN tablet 04/21/17 08/26/19 08/25/19 Rx Sevelamer [Renagel] 1,600 mg PO TID CC tablet 04/21/17 08/26/19 08/25/19 Rx - History of Present Illness-Resp Nature of Presenting Problem: 79yobf presents to ED by EMS cc SOB and anxiety. Pt was seen in ED on 08/24/2019 for trouble concentrating, mackey &slurred speech, dx with TIA, told follow up with PCP so she was doing that today when she started having SOB and anxiety. She denies CP/cough. She has hx of ESRD, TIA, CVA, CHF, COPD and anxiety. She is a dialysis pt and has dialysis //Mon. Quality of Pain: reports: none Severity in ED: reports: mild Onset/Duration: reports: gradual Timing: reports: still present Cough Quality/Degree: reports: no cough Current Respiratory Medication Therapy: Initiated see nurses note Modifying Factors: improves with: nothing Associated Symptoms: reports: shortness of breath, short of breath Similar Symptoms Previously?: No Recently seen or treated by another doctor?: Yes (seen by PCP today) Review of Systems - Adult - REVIEW OF SYSTEMS - ADULT Constitutional: reports: see HPI. denies: chills, fever, fatique Eyes: reports: no symptoms reported Ears, Nose, Mouth & Throat: reports: no symptoms reported Cardiovascular: reports: see HPI. denies: chest pain Respiratory: reports: see HPI, shortness of breath. denies: cough, wheezing Gastrointestinal: reports: no symptoms reported Genitourinary: reports: no symptoms reported Musculoskeletal: reports: no symptoms reported Integumentary: reports: no symptoms reported Neurological: reports: no symptoms reported Psychiatric: reports: see HPI, anxiety Endocrine: reports: no symptoms reported Hematologic/Lymphatic: reports: no symptoms reported Allergic/Immunologic: reports: no symptoms reported All Other Systems: Reviewed and Negative Past History - Adult - PAST MEDICAL HISTORY-ADULT Review of Records: reports: Old Records Reviewed, Nursing Assessment Review, Medications Reviewed, Social history reviewed & non-contributory. Major Childhood Illnesses: reports: denies history Cardiovascular: reports: CHF, HTN Respiratory: reports: COPD Gastrointestinal: reports: denies history Obstetrical/Gynecological: reports: denies history Genitourinary: reports: dialysis (Mon, and Mon), ESRD Musculoskeletal: reports: denies history Neurological: reports: CVA, TIA. denies: stroke deficits Endocrine/Immune: reports: thyroid disorder Other Conditions: reports: denies history - PRIOR SURGERIES/PROCEDURES Surgical/Procedure History: reports: hysterectomy, indwelling device (av fistula left forearm), other (breast biopsy, lumpectomoy) - PRIOR HOSPITALIZATIONS Prior Hospitalizations: reports: for other non-related - IMMUNIZATION STATUS Childhood Immunizations: See Nurse Assessment Flu Vaccine: UTD - FAMILY HISTORY Family History: reviewed, not pertinent - SOCIAL HISTORY Smoking: denies Physical Exam-General - PHYSICAL EXAM-ADULT Initial Vital Signs Reviewed: Yes - CONSTITUTIONAL General Appearance: appears well, alert, no apparent distress, anxious. negative: combative - EYES Eyes: PERRL/EOMI, pink conjunctivae. negative: photophobia - HEAD, EARS, NOSE, MOUTH & THROAT HENMT: normocephalic/atraumatic, moist mucous membranes. negative: angioedema - NECK Neck: supple, normal inspection - RESPIRATORY Respiratory: chest non-tender, lungs clear, normal breath sounds. negative: rhonchi, wheezing - CARDIOVASCULAR Cardiovascular: normal peripheral pulses, no murmur, tachycardia. negative: regular rate, rhythm, bradycardia - GASTROINTESTINAL (ABDOMEN) Abdominal Exam: normal bowel sounds, non tender, soft. negative: guarding, rebound - LYMPHATIC Lymphatic: no adenopathy. negative: enlargement - MUSCULOSKELETAL Extremity: no calf tenderness, swelling (2+ edema to BLE), other (fistula left f orearm no erythema). negative: deformity - SKIN Integumentary: normal color. negative: diaphoresis, jaundice - PSYCHIATRIC Psych/Mental Status: normal mood/affect, oriented x 3, anxious - HEART Score HEART Score: History: Moderately Suspicious HEART Score: ECG: Non-Specific Repolarization Disturbance/LBBB/PM HEART Score: Age: > or = 65 Years HEART Score: Risk Factors for Atherosclerotic Disease: 1 or 2 Risk Factors HEART Score: Troponin: > or = 3x Normal Limit Total HEART Score:: 7 Progress - PLAN OF CARE/RESULTS Progress/Plan/Lab Results: Vital Signs - 8 hr 08/26/19 18:34 08/26/19 20:15 08/26/19 22:44 Temperature 97.9 F 98.6 F Pulse Rate 94 H 84 76 Respiratory Rate 20 20 21 Blood Pressure 147/99 141/75 126/72 O2 Sat by Pulse Oximetry 99 100 100 Laboratory Results - last 24 hr 08/26/19 08/26/19 08/26/19 20:02 20:02 21:23 WBC 6.09 RBC 4.17 L Hgb 11.8 L Hct 35.7 L MCV 85.6 MCH 28.3 MCHC 33.1 RDW Std Deviation 21.0 H Plt Count 119 L MPV 10.9 H Immature Gran % (Auto) 0.0 Neut % (Auto) 73.1 Lymph % (Auto) 15.1 L [place] % (Auto) 10.8 H Eos % (Auto) 0.5 Baso % (Auto) 0.5 Immature Gran # (Auto) 0.00 Neut # (Auto) 4.45 Lymph # (Auto) 0.92 L [place] # (Auto) 0.66 H Eos # (Auto) 0.03 Baso # (Auto) 0.03 PT 15.5 INR 1.21 PTT (Actin FS) 32.2 Sodium 134 L Potassium 4.1 Chloride 92 L Carbon Dioxide 20 L Anion Gap 22 BUN 33 H Creatinine 6.4 H Estimated GFR/1.73 m2 8 BUN/Creatinine Ratio 5 Glucose 109 H Calculated Osmolality 276 Calcium 8.4 L Total Bilirubin 0.84 AST 43 H ALT 31 Alkaline Phosphatase 76 Troponin T High Sens Rdm-I-Jgcgzbjbeem Pept Total Protein 6.3 Albumin 3.8 Globulin 2.5 Albumin/Globulin Ratio 1.5 08/26/19 08/26/19 21:23 21:39 WBC RBC Hgb Hct MCV MCH MCHC RDW Std Deviation Plt Count MPV Immature Gran % (Auto) Neut % (Auto) Lymph % (Auto) [place] % (Auto) Eos % (Auto) Baso % (Auto) Immature Gran # (Auto) Neut # (Auto) Lymph # (Auto) [place] # (Auto) Eos # (Auto) Baso # (Auto) PT INR PTT (Actin FS) Sodium Potassium Chloride Carbon Dioxide Anion Gap BUN Creatinine Estimated GFR/1.73 m2 BUN/Creatinine Ratio Glucose Calculated Osmolality Calcium Total Bilirubin AST ALT Alkaline Phosphatase Troponin T High Sens 473 H* Eol-E-Osymcvctvmn Pept > 61414 H Total Protein Albumin Globulin Albumin/Globulin Ratio Orders Category Date Time Status CHEST-1 VIEW [RAD] Stat Exams 08/26/19 19:[address] HEAD W/O CONTRAST [CT] Stat Exams 08/26/19 19:36 Completed CBC WITH DIFF [HEME] Stat Lab 08/26/19 20:02 Completed COMPREHENSIVE METABOLIC PANEL [CHEM] Stat Lab 08/26/19 21:23 Completed PRO B-NATRIURETIC PEPTIDE Stat Lab 08/26/19 21:23 Completed PROTIME WITH INR [COAG] Stat Lab 08/26/19 20:02 Completed PTT [COAG] Stat Lab 08/26/19 20:02 Completed TROPONIN T HIGH SENSITIVITY Stat Lab 08/26/19 21:39 Completed EKG [EKG] Stat Ther 08/26/19 19:21 Draft 3 lab called and asked the RN to recollect, RN tried but pt is a hard stick and only has 1 usable side, she asked lab to come but was informed it would be a while. Result Diagrams: 08/26/19 20:02 08/26/19 21:23 - EKG 1 Time of EKG reading by physician:: 18:30 EKG Read and Signed by:: Alonso Hinds EKG Interpretation (*Must complete 3 of following elements*): Abnormal (cannot rule out anteroseptal infarct, age undetermined Prolonged QT) Rate: 101 Rhythm: Afib w/variable AV block w/PVC or PAC [place]: normal QRS: PVC's, other (low voltage,) IN Interval: normal ST Wave: non-specific ST changes - XRAY 1 XRAY: Bilateral XRAY Study: Chest Impression: See EMR Report (IMPRESSION: Cardiomegaly. Increased pulmonary vascularity. Electronically signed by Lazaro Ramírez 08/26/2019 7:49 PM) - CT/MRI 1 CT Study: Head Impression: See EMR Report (IMPRESSION: Chronic ischemic microvascular changes. No evidence of acute disease. Electronically signed by Lazaro Ramírez 08/26/2019 7:54 PM) - CONSULTS/PCP/HOSPITALIST Notification #1 *Consult/PCP/Hospitalist*: Dr. Crockett Time Discussed: 22:25 Consult Disposition: Admit Departure - Departure Date of Disposition Decision: 08/26/19 Time of Disposition Decision: 22:25 DIAGNOSIS: Elevated troponin, CHF (congestive heart failure) A-fib Qualifiers: Atrial fibrillation type: unspecified Qualified Code(s): I48.91 - Unspecified atrial fibrillation TIA (transient ischemic attack) Qualifiers: Transient cerebral ischemia type: unspecified Qualified Code(s): G45.9 - Transient cerebral ischemic attack, unspecified Disposition: ADMITTED INPATIENT 09 Certified Medical Emergency: Emergent Condition: Stable Referrals and Follow-Ups: Long Hutchinson MD [Primary Care Provider] - - Critical Care Note This patient required my direct & personal management of CC.: Yes Total Time (mins): 35 Critical Care Statement: This patient required my direct personal management to treat or rule out processes, the absence of which, could potentiallly result in sudden, clinically significant life or limb threatening deterioration. Attestation - Physician/ RICKEY Attestation Patient care was provided by Advanced Practice Provider:: No The physician spent face to face time with patient:: Yes Advanced Practice Provider documentation review:: Supervising physician onsite and consulted in the evaluation and care of this patient. The physician did have a face to face encounter with the patient. This chart was documented by the indicated scribe, (Muna Du, Ly) and accurately reflects the services I performed and decisions made by me, Norberto Fernandes MD, as attested by the provider's signature.
[2019-08-27] MEDS ORDERED: OXY IR PO PRN (00:38)
[2019-08-27] MEDS ORDERED: TYLENOL PO PRN ×2 (00:38→08:05)
--- NOTE | 2019-08-27 06:17 | HISTORY AND PHYSICAL ---
PRIMARY CARE PROVIDER: Long Hutchinson. CHIEF COMPLAINT: Shortness of breath. HISTORY OF PRESENTING ILLNESS: An 79-year-old female with a history of end-stage renal disease on renal dialysis Monday, and Monday, hypertension, chronic obstructive pulmonary disease, diabetes mellitus, multiple transient ischemic attacks and cerebrovascular accident who had presented to emergency department with several days history of having shortness of breath. The patient states that she felt some chest tightness at times and she was having some difficulty breathing. She was evaluated in the emergency department and, due to her presenting symptoms, she will require admission for further management. At the time of my examination, patient denied any headache, fever, chills, nausea, vomiting, diarrhea, hemoptysis, melena, but complained of shortness of breath. PAST MEDICAL HISTORY: End-stage renal disease, hypertension, chronic obstructive pulmonary disease, cerebrovascular accident, transient ischemic attack. PAST SURGICAL HISTORY: Bilateral hip replacement, hysterectomy. ALLERGIES: No known drug allergies. CURRENT MEDICATIONS: Eliquis 2.5 mg p.o. b.i.d., Celebrex 200 mg p.o. b.i.d., Sensipar 60 mg p.o. b.i.d., oxycodone 5 mg t.i.d., Renagel 1600 mg p.o. t.i.d., Renvela 800 mg 3 tabs p.o. t.i.d. SOCIAL HISTORY: She denies any history of smoking, alcohol or illicit drug use. She lives with her great granddaughter. FAMILY HISTORY: No history of coronary disease. REVIEW OF SYSTEMS: Fourteen point review of systems is as in HPI. Other systems negative. PHYSICAL EXAMINATION: GENERAL: Cooperative, friendly, elderly female. She is resting more comfortably now. VITAL SIGNS: Temperature 97.9 degrees, pulse 94, respirations 20, blood pressure 147/99. HEENT: Atraumatic, normocephalic. Extraocular movements intact. PERRLA. NECK: No masses. CHEST: Bibasilar rales. CARDIOVASCULAR: Regular rate and rhythm. ABDOMEN: Soft. Positive bowel sounds. EXTREMITIES: +1 edema. NEUROLOGIC: She is awake, alert, oriented x2. : No bladder distention. SKIN: Warm. LABORATORY STUDIES: Troponin is 473. Sodium 134, potassium 4.1, chloride 92, CO2 is 20, BUN is 33, creatinine 6.4, glucose 109. ProBNP is 35,000. WBC 6.09, hemoglobin 11.8, hematocrit 35.7, platelets 119,000. Chest x-ray shows increased pulmonary vascularity. Head CT shows chronic microvascular changes, no evidence of any acute disease. ASSESSMENT: This is an 79-year-old elderly female with a history of end-stage renal disease, hypertension, chronic obstructive pulmonary disease, and transient ischemic attacks who had presented to emergency department with several days history of having shortness of breath. She was evaluated in the emergency department and, due to her presenting symptoms, she will require admission for further management. 1. Shortness of breath, possible volume overload. 2. End-stage renal disease. 3. Probable atrial fibrillation/flutter. 4. Elevated troponin in setting of renal failure. 5. History of multiple transient ischemic attacks. PLAN: 1. We will admit patient to medical floor with telemetry. 2. Continue patient on supplemental oxygen. 3. We will consult Nephrology for dialysis. 4. We will consult Cardiology for further evaluation of atrial fibrillation. 5. We will continue to monitor neuro status. 6. The patient is on Eliquis and that will suffice for deep venous thrombosis prophylaxis. 7. We will continue to follow and reassess, make further recommendation based on patient's clinical course. cc: Rikki Crockett MD
[2019-08-27 07:37] LABS: BASO% 2.2 % (0.0-0.8); EOS# 0.07 X1000 (0.0-0.7); EOS% 1.5 % (0.0-10.0); HEMATOCRIT 33.7 % (37.0-47.0); HEMOGLOBIN 11.3 g/dL (12.0-16.0); LYMPH# 0.61 X1000 (1.2-3.4); LYMPH% 13.3 % (20.5-51.1); MCH 28.9 PG (27-31); MCHC 33.5 g/dL (33-37); MCV 86.2 FL (81-99); MONO# 0.51 X1000 (0.11-0.59); MONO% 11.1 % (1.7-9.3); MPV 11.4 FL (7.4-10.4); NEUT# 3.31 X1000 (1.4-6.5); NEUT% 71.9 % (42.2-75.2); PLT 124 X1000 (130-400); RBC 3.91 XMIL (4.2-5.4)
[2019-08-27] MEDS ORDERED: NS 1,000 ML IV PRN (08:05)
[2019-08-27] MEDS ORDERED: NS 2,000 ML MISC PRN (08:05)
[2019-08-27 08:07] LABS: CALCIUM 8.5 mg/dL (8.8-10.2); CREATININE 7.3 mg/dL (0.5-0.9); POTASSIUM 3.9 mmol/L (3.5-5.1)
[2019-08-27] MEDS: NEPHRO-VITE PO SCH (08:58)
[2019-08-27] MEDS: SENSIPAR PO SCH ×2 (08:58→21:08)
[2019-08-27] MEDS: COLACE PO SCH ×2 (08:58→21:08)
[2019-08-27] MEDS: RENAGEL PO SCH ×3 (08:58→18:07)
[2019-08-27] MEDS ORDERED: SEVELAMER CARBONATE PO SCH (09:00)
[2019-08-27] MEDS ORDERED: ELIQUIS PO SCH (09:00)
[2019-08-27] MEDS ORDERED: CELEBREX PO SCH (09:00)
[2019-08-27] MEDS ORDERED: ASPIRIN PO STA (11:25)
--- NOTE | 2019-08-27 11:27 | EKG Report ---
Test Performed on : 08/27/2019 11:12:34 AM Test Reason : chest pain, afib Blood Pressure : / mmHG Vent. Rate : 099 BPM Atrial Rate : 300 BPM P-R Int : 000 ms QRS Dur : 098 ms QT Int : 434 ms P-R-T Axes : 000 056 185 degrees QTc Int : 556 ms Critical Test Result: Long QTc Undetermined rhythm Low voltage QRS Cannot rule out Anterior infarct (cited on or before 26-AUG-2019) T wave abnormality, consider inferolateral ischemia Prolonged QT Abnormal ECG When compared with ECG of 26-AUG-2019 18:30, (Unconfirmed) Current undetermined rhythm precludes rhythm comparison, needs review Serial changes of evolving Anterior infarct present Confirmed by Trupti URIBE, Carlos Mckeon ([id number]) on 08/28/2019 9:07:58 AM
[2019-08-27] MEDS ORDERED: LOPRESSOR PO SCH (11:30)
[2019-08-27] MEDS ORDERED: MAGNESIUM SULFATE 1 GM/D5W 1 GM/100 ML IVPB IV ONE (11:47)
--- NOTE | 2019-08-27 11:53 | NEPHROLOGY PROGRESS NOTE ---
DATE: 08/27/2019 REASON FOR CONSULTATION: End-stage renal disease. HISTORY OF PRESENT ILLNESS: Ms. Tillman is an 79-year-old -[place] woman who is well known to us. She has CKD 5D secondary to hypertension. She also has COPD, cerebrovascular disease, and diabetes. She has a history of vertebral osteomyelitis. She came in the emergency room on Monday with altered sensorium and was diagnosed with a TIA and allowed to go home thereafter. She had an episode of atrial fibrillation with RVR as well. She returned to the emergency room yesterday with shortness of breath. She has real difficulty relating the history but it sounds like she presented to her primary doctor (Long Hutchinson) who directed her to the emergency room. She is very confused, somnolent but arousable. She does know that she is in the hospital and she knows who I am. PAST MEDICAL HISTORY: As above. HOME MEDICATIONS: Eliquis, Celebrex, Sensipar, oxycodone, Renvela. ALLERGIES: None. SOCIAL HISTORY: She lives with her extended family. No alcohol or tobacco. FAMILY HISTORY: Noncontributory. REVIEW OF SYSTEMS: Otherwise noncontributory. PHYSICAL EXAMINATION: Vital Signs: Blood pressure 130/59, heart rate 71, respirations 22, afebrile. Generally: An elderly woman. Mental status as above. No acute distress. Skin: Warm and dry. No lesions. HEENT: Pupils are equal. Dense corneal arcus is present. Conjunctivae are pink. Oropharynx is clear but tongue is coated. Neck: Supple. Trachea is midline. Neck vein distention is not appreciated. Cardiac: PMI is displaced and somewhat hyperdynamic. Auscultation demonstrates an irregular rhythm with tachycardia. Lungs: Equal breath sounds. No crackles or wheezes. Abdomen: Soft, nontender. Bowel sounds are present. No organomegaly. Extremities: Trace edema. No clubbing or cyanosis. IMPRESSION: 1. Chronic kidney disease 5D. She will have her routine hemodialysis treatment today using her routine outpatient dialysis prescription. 2. Altered mental status. Possible cerebrovascular disease. 3. Atrial fibrillation with RVR. Dr. Coronel has been consulted. 4. Electrolytes/acid base/anemia/blood pressure all in target. cc: Jerardo Morfin MD
[2019-08-27] MEDS ORDERED: LIPITOR PO ONE (12:00)
[2019-08-27] MEDS ORDERED: HEPARIN IV ONE (12:17)
[2019-08-27 13:09] LABS: INR 1.41; PROTIME 17.5 Seconds (11.0-16.0); PTT 38.7 Seconds (22.3-41.8)
--- NOTE | 2019-08-27 13:50 | CONSULTATION ---
DATE OF CONSULTATION: 08/27/2019 IMPRESSION: 1. Mild elevation in troponin with abnormal ECG. Findings concerning for recent myocardial infarction. 2. Aortic stenosis. 3. Atherosclerotic coronary disease. 4. Hypertensive cardiovascular disease. 5. Atrial flutter. 6. End-stage renal disease requiring chronic hemodialysis. 7. Previous cerebrovascular accident. 8. Hyperlipidemia. RECOMMENDATIONS: 1. Repeat serial troponins. 2. Echocardiography. 3. Transition to intravenous heparin. 4. Increase metoprolol as tolerated. 5. Consideration to be given to pursuit of cardiac catheterization/coronary angiography in hopes of finding a percutaneous angioplasty/stent amenable coronary abnormality. She is probably significantly risky to pursue cardiovascular surgery and this is probably not a very good option for her. The foregoing was discussed with her at length. We will review followup troponin and echocardiography as she has dialysis this afternoon and consider merits of transfer to [place] for invasive evaluation and management. HISTORY: This 79-year-old -[place] female with past history of end-stage renal disease requiring hemodialysis for many years now, hypertensive cardiovascular disease, coronary atherosclerosis, aortic stenosis, atrial flutter, hyperlipidemia, and previous cerebrovascular accident, was admitted with symptoms of fatigue and shortness of breath. ECG was abnormal and troponin returned with a level of 400 or so using high-sensitivity assay. For this reason, Cardiology was consulted. She has been dialyzing on Tuesdays, and Saturdays. This past Monday, she felt lightheaded and weak on dialysis and relates that dialysis was shortened because of this. She has had symptoms of rather profound fatigue and exertional shortness of breath. She was hospitalized for further management. ECG was abnormal, showing ischemic changes and troponin was abnormal. She denies any exertional chest pain. She does describe some difficulty swallowing and some substernal chest discomfort but relates this strictly to eating. She also relates that over the past year or so, she has had a tendency for low blood pressure and any antihypertensive medications have had to be reduced. She has been on long-term anticoagulation with low-dose Eliquis given her atrial tachyarrhythmias (atrial flutter) and previous cerebrovascular accident, making her a significant risk for recurrent thromboembolic phenomenon. PAST MEDICAL HISTORY: 1. End-stage renal disease requiring chronic hemodialysis. 2. Aortic stenosis. 3. Atherosclerotic coronary disease. 4. Hypertensive cardiovascular disease. 5. Atrial flutter. 6. Hyperlipidemia. 7. Previous cerebrovascular accident. PAST SURGICAL HISTORY: Includes left hip replacement, right hip replacement, and hysterectomy. ALLERGIES: She has no known drug allergies. MEDICATIONS PRIOR TO ADMISSION: As listed. SOCIAL HISTORY: She is . She lives with her 15-year-old granddaughter. She ambulates with the aid of a walker but does manage to continue to live independently. She does not smoke nor use alcohol. FAMILY HISTORY: Negative for premature coronary disease. REVIEW OF SYSTEMS: Pulmonary: Noteworthy for some exertional shortness of breath but negative for cough. Gastrointestinal: Noteworthy for some chest symptoms provoked by swallowing. GI review of systems otherwise negative. Constitutional: Negative. Remaining review of systems negative/noncontributory beyond history of present illness with 14 total systems reviewed. PHYSICAL EXAMINATION: General: A pleasant, elderly, -[place] female, in no distress. Vital signs: Blood pressure 130/59, heart rate 71. HEENT: Extraocular movements appear to be intact. Mucous membranes are moist. Neck: Supple without jugular venous distention. Chest: Clear to auscultation bilaterally. Cardiac: Reveals an irregular rate and rhythm without appreciable murmur or gallop. Abdomen: Soft. Bowel sounds are normal. Extremities: With trace edema. Neurologic: Reveals her to be alert and fully oriented. Speech is fluent. She moves all 4 extremities equally well. Psychiatric: Reveals her mood to be appropriate. Skin: Warm and dry. DIAGNOSTIC DATA: Twelve lead EKG demonstrates atrial flutter with occasional premature ventricular aberrantly [*]conducted complex, heart rate of 99 beats per minute. Cannot rule out anteroseptal infarct of undetermined age, and inferolateral ST and T-wave abnormality, consider inferolateral ischemia. QT interval is prolonged. LABORATORY DATA: Includes a sodium 132, potassium 3.9, chloride 88, carbon dioxide 22, BUN 38, creatinine 7.3, glucose 92. Troponin T 473, pro B-natriuretic peptide level greater than 35,000, protime 15.5, INR 1.21. White blood cell count 4.6, hematocrit 33.7, hemoglobin 11.3, platelet count 124,000. IMAGING: Chest x-ray reports cardiomegaly and increased pulmonary vascularity. cc: Germain Coornel MD
[2019-08-27 14:13] LABS: CK INDEX 2.4 (0.0-2.5); CK-MB 8.26 ng/mL (0.0-5.0)
--- NOTE | 2019-08-27 14:22 | PROGRESS NOTE ---
DATE: 08/27/2019 INTERVAL HISTORY: Ms. Tillman was admitted for chest tightness and shortness of breath. On presentation, she was found to have elevated troponins. Unfortunately, it was not followed up with repeat troponins. As soon as I realized she had elevated troponins on presentation, I ordered stat troponins, stat EKG, aspirin, statin, beta blockers, and evaluated the patient at bedside. SUBJECTIVE: Ms. Tillman denies any chest pain, chest pressure, chest tightness at the time of my evaluation. She states her shortness of breath is better, and she is not feeling short of breath even on room air. She denies palpitation. She denies nausea, vomiting. REVIEW OF SYSTEMS: Negative for vomiting, abdominal pain. Negative for diarrhea. Negative for headache or blurring vision. MEDICATIONS: She is on folic acid, apixaban, sevelamer, cinacalcet, oxycodone, celecoxib, docusate, sevelamer, acetaminophen at home. Currently, she has been, at the time of dictation, started on heparin drip by Cardiology team. OBJECTIVE: Vital Signs: Temperature 97.8 degrees, pulse 89, respiratory rate 19, blood pressure 140/89, saturating 96% on room air. General: Ms. Tillman is not in any acute distress. HEENT: Oral cavity is moist. Lungs: Air entry bilaterally equal. No wheeze, rhonchi, or crackles, except infrascapular region, where she has inspiratory crackles. Cardiovascular: S1, S2 normal. Regular. No murmur or gallop. Abdomen: Obese, soft, nontender. No jugular venous distention. Extremities: She has bilateral lower extremity edema. She has a left forearm AV fistula. Neurologic: She is alert and oriented x3. LABORATORY DATA: WBC 4.6, hemoglobin 11.3, platelets 124,000. INR 1.4. Sodium 132, chloride 88, BUN 38, creatinine 7.3. Repeat troponin is 357. TSH is 2.05. MICROBIOLOGY: No data. IMAGING: Head CT on presentation for speech difficulty and possible CVA had chronic microvascular changes, without any evidence of acute disease. ASSESSMENT AND PLAN: 1. Shortness of breath and chest tightness, likely because of non-ST elevation myocardial infarction. She received a stat dose of aspirin and atorvastatin. I will continue her on aspirin, high-dose atorvastatin. I will trend troponins. I will follow up with echocardiogram. I will continue her on beta evelin, metoprolol. Appreciate Cardiology team's recommendation. She has been started on heparin drip. 2. End-stage renal disease, on Monday, hemodialysis. Continue her home Sensipar for secondary hyperparathyroidism, and sevelamer for hyperphosphatemia. 3. History of atrial fibrillation and atrial flutter, on Eliquis at home, currently rate well controlled. Continue metoprolol. She has been on heparin drip, and Eliquis has been held. 4. Prior history of multiple transient ischemic attacks and cerebrovascular accidents. She is on anticoagulation at the moment. 5. She also has history of chronic obstructive pulmonary disease, which is currently not in acute exacerbation. 6. Disposition. Ms. Tillman's condition is tenuous considering non ST-elevation myocardial infarction. I will continue to monitor her in telemetry bed. Plan of care discussed with her. I had a detailed discussion about her non ST-elevation myocardial infarction with the patient as well as Cardiology team at bedside. cc: Nas Maldonado MD
[2019-08-27] MEDS ORDERED: HEPARIN 25,000 UNITS/D5W 25,000 UNIT/250 ML IV.SOLN IV SCH (18:00)
[2019-08-27 18:30] LABS: CK INDEX 2.4 (0.0-2.5); CK-MB 6.9 ng/mL (0.0-5.0)
[2019-08-27 19:24] LABS: CK INDEX 2.4 (0.0-2.5); CK-MB 10.47 ng/mL (0.0-5.0)
--- NOTE | 2019-08-27 19:58 | PROGRESS NOTE ---
DATE: 08/27/2019 SUBJECTIVE: The patient continues without chest discomfort or shortness of breath. She underwent hemodialysis uneventfully this afternoon. OBJECTIVE: Vital Signs: Blood pressure 127/74, heart rate 72, oxygen saturation 100%. Chest: Clear to auscultation bilaterally. Cardiac exam: Reveals a regular rate and rhythm without appreciable murmur or gallop. Extremities: There is no evidence of peripheral edema. DIAGNOSTIC DATA: Echocardiography preliminarily demonstrates a small to medium size area of thinning and akinesis involving the basal inferior wall, which was noted on previous echocardiography in 2017. She demonstrates new wall motion abnormality in the anteroapical region with relatively preserved wall thickness. She appears to have a new ischemic wall motion abnormality in distribution of left anterior descending coronary artery. Moderate aortic stenosis is demonstrated. Additional laboratory data demonstrates a gradual decline in troponin level from initial value of 473to 357 to 328 and now is 292. IMPRESSION: 1. Suspect recent acute coronary syndrome with echocardiography suggesting new ischemic wall motion abnormality in distribution of left anterior descending coronary artery. She has had some loss of R-waves in the anterior precordial leads but has not developed Q-waves. 2. Aortic stenosis moderate, not severe. 3. Atherosclerotic coronary disease. 4. Hypertensive cardiovascular disease. 5. Atrial flutter. 6. End-stage renal disease requiring chronic hemodialysis. 7. Previous cerebrovascular accident. 8. Hyperlipidemia. RECOMMENDATIONS: Given significant area of wall motion abnormality in LAD territory on echocardiography, invasive evaluation with cardiac catheterization/coronary angiography is favored in hopes of finding PTCA/stent minimal lesion. She is probably not a suitable candidate for coronary bypass surgery. I discussed this with her and suggested that she transfer to [facility] tomorrow morning to have invasive evaluation with cardiac catheterization and possible coronary angioplasty/stenting. Indications of potential hazards were reviewed, and she wished to proceed. I subsequently contacted her [id number] and made her family aware of her condition and plan of management. cc: Germain Coronel MD
[2019-08-27] MEDS: LOPRESSOR PO SCH (21:08)
[2019-08-28 05:46] LABS: BASO# 0.06 X1000 (0.0-0.2); BASO% 1.4 % (0.0-0.8); EOS# 0.04 X1000 (0.0-0.7); EOS% 0.9 % (0.0-10.0); HEMOGLOBIN 10.7 g/dL (12.0-16.0); LYMPH# 0.51 X1000 (1.2-3.4); LYMPH% 11.5 % (20.5-51.1); MCH 29.2 PG (27-31); MCHC 33.4 g/dL (33-37); MCV 87.4 FL (81-99); MONO# 0.73 X1000 (0.11-0.59); MONO% 16.5 % (1.7-9.3); MPV 11.4 FL (7.4-10.4); NEUT# 3.08 X1000 (1.4-6.5); NEUT% 69.7 % (42.2-75.2); PLT 116 X1000 (130-400); RBC 3.66 XMIL (4.2-5.4); RDW 21.4 % (11.5-14.5); WBC 4.42 X1000 (4.8-10.8)
[2019-08-28 06:03] LABS: ALBUMIN 3.6 g/dL (3.5-5.0); CALCIUM 8.2 mg/dL (8.8-10.2); CREATININE 4.8 mg/dL (0.5-0.9); MAGNESIUM 2.3 mg/dL (1.5-2.7); PHOSPHORUS 4.3 mg/dL (2.7-4.5); POTASSIUM 3.8 mmol/L (3.5-5.1)
--- NOTE | 2019-08-28 07:19 | EKG Report ---
Test Performed on : 08/28/2019 06:08:12 AM Test Reason : chest pain, afib Blood Pressure : / mmHG Vent. Rate : 071 BPM Atrial Rate : 284 BPM P-R Int : 000 ms QRS Dur : 104 ms QT Int : 552 ms P-R-T Axes : 085 077 204 degrees QTc Int : 599 ms Critical Test Result: Long QTc Atrial flutter. with 4:1 AV conduction. Cannot rule out Anterior infarct (cited on or before 26-AUG-2019) T wave abnormality, consider inferolateral ischemia Prolonged QT Abnormal ECG When compared with ECG of 27-AUG-2019 11:12, (Unconfirmed) Previous ECG has undetermined rhythm, needs review Confirmed by Trupti URIBE, Carlos Mckeon ([id number]) on 08/28/2019 9:08:14 AM
[2019-08-28 07:30] VITALS: BP 123/72
[2019-08-28] MEDS ORDERED: RENAGEL PO SCH (08:00)
--- NOTE | 2019-08-28 08:53 | PROGRESS NOTE ---
DATE: 08/28/2019 SUBJECTIVE: Patient continues without chest discomfort or shortness of breath. OBJECTIVE: Blood pressure 123/72, heart rate 70, oxygen saturation 100% on room air. There is no significant jugular venous distention. Chest: Clear to auscultation bilaterally. Cardiac Examination: Reveals an irregular rate and rhythm without appreciable murmur or gallop. Extremities: Without edema. Repeat 12-lead electrocardiogram is reviewed and demonstrates atrial flutter with 4:1 AV conduction and a heart rate of 71 beats per minute. Cannot rule out anteroseptal infarct of undetermined age. Anterolateral T-wave abnormality, consider anterolateral ischemia. QT interval is prolonged. Laboratory Data: Includes a white blood cell count of 4.42, hematocrit 32.0, hemoglobin 10.7, platelet count 116,000. PTT 79.8. Sodium 137, potassium 3.8, chloride 94, carbon dioxide 23, BUN 23, creatinine 4.8, glucose 88. IMPRESSION: 1. Recent acute coronary syndrome with echocardiography showing new ischemic wall motion abnormality in the distribution of the left anterior descending coronary artery. 2. Moderate aortic stenosis. 3. Atherosclerotic coronary artery disease. Previous noninvasive studies have indicated basal inferior infarct and preserved left ventricular ejection fraction. 4. Hypertensive cardiovascular disease. 5. Atrial flutter, chronic. 6. End-stage renal disease requiring chronic hemodialysis. 7. Previous cerebrovascular accident with little residual. 8. Hyperlipidemia. RECOMMENDATIONS: As noted in previous followup note from yesterday evening, pursuit of invasive evaluation with a cardiac catheterization/coronary angiography recommended in hopes of finding PCI minimal lesion, particularly in the left anterior descending coronary artery. This has been discussed with the patient including potential hazards and her family has also been advised. Arrangements have now been made to have patient transferred to [facility] for cardiac catheterization/coronary angiography and possible coronary angioplasty/stenting. cc: Germain Coronel MD
[2019-08-28] MEDS ORDERED: ASPIRIN PO SCH (09:00)
[2019-08-28] MEDS: NEPHRO-VITE PO SCH (09:04)
[2019-08-28] MEDS: COLACE PO SCH (09:04)
[2019-08-28] MEDS: SENSIPAR PO SCH (09:04)
[2019-08-28] MEDS: LOPRESSOR PO SCH (09:04)
--- NOTE | 2019-08-28 09:52 | PROGRESS NOTE ---
DATE: 08/28/2019 INTERVAL HISTORY: Ms. Tillman had downtrend of her troponin. She did not have any chest pain or shortness of breath. Cardiology team is planning to transfer her to [facility]. For details, discharge summary is to follow. cc: Nas Maldonado MD
--- NOTE | 2019-08-28 10:03 | ECHO REPORT ---
ORDER DATE: 08/27/2019 MEASUREMENTS: Septal thickness 1.2, left ventricular internal diameter in diastole 5.1, posterior wall thickness 1.2, left ventricular internal diameter in systole 3.8, aortic root 3.0, left atrium 5.0. SUMMARY: 1. Adequate quality study. 2. Fibrocalcific changes of aortic valve demonstrated with reduced aortic valve leaflet mobility. The peak gradient across the aortic valve is 20 mmHg. Doppler is somewhat suboptimal. Moderate aortic stenosis is suggested. There is mild aortic regurgitation. Mitral, tricuspid, and pulmonic valves are without evidence of structural abnormality, with mild mitral regurgitation and moderate to severe tricuspid regurgitation. The estimated systolic PA pressure by Doppler is 50 mmHg, suggesting moderate pulmonary hypertension. The aortic root is normal in size. 3. Normal left ventricular chamber size with mild concentric left ventricular hypertrophy demonstrated. The estimated left ventricular ejection fraction is approximately 35 to 40 percent. There is thinning and akinesis of the basal inferior wall. There is also akinesis with a relatively preserved wall thickness of the mid to apical anterior wall, apex, and apical inferior wall. Moderate biatrial enlargement is demonstrated. The right ventricle is of normal size with grossly preserved right ventricular systolic function. 4. Tiny posterior pericardial effusion. 5. Appearance of the inferior vena cava suggests elevation in central venous pressure. CONCLUSIONS: 1. Moderate calcific aortic stenosis with mild aortic regurgitation. 2. Mild mitral regurgitation. 3. Moderate to severe tricuspid regurgitation with moderate pulmonary hypertension by Doppler. 4. Mild concentric left ventricular hypertrophy with an estimated left ventricular ejection fraction of 35 to 40 percent, with thinning and akinesis of the basal inferior wall reported on previous studies and new finding of akinesis with relatively preserved wall thickness of the mid to apical anterior wall, apex, and apical inferior wall. 5. Moderate biatrial enlargement. 6. Tiny posterior pericardial effusion. 7. Elevated central venous pressure suggested. cc: MD Nas Serrano MD
--- NOTE | 2019-08-28 10:14 | DISCHARGE SUMMARY ---
ADMISSION DATE: 08/27/2019 DISCHARGE DATE: 08/28/2019 DISCHARGE DISPOSITION: The patient is being transferred to [facility] for coronary angiography and possible intervention. DISCHARGE CONDITION: Ms. Tillman is hemodynamically stable. She denies chest pain. She denies shortness of breath or palpitation. She denies any dizziness or lightheadedness. DISCHARGE DIAGNOSES: 1. Non-ST elevation myocardial infarction. 2. Shortness of breath, likely related to non ST-elevation myocardial infarction. 3. End-stage renal disease, on Monday, , Monday hemodialysis. 4. History of chronic atrial fibrillation and atrial flutter, on Eliquis at home. 5. Prior history of multiple transient ischemic attack and cerebrovascular accident. 6. History of chronic obstructive pulmonary disease. 7. History of atherosclerotic coronary artery disease. 8. History of aortic stenosis. 9. Hyperlipidemia. CURRENT MEDICATIONS: The patient is on: 1. Intravenous heparin drip with goal PTT of 66 to 95. 2. Atorvastatin 40 mg at nighttime. 3. Aspirin 81 mg daily. 4. Oxycodone 5 mg every 3 hours as needed for chronic pain. 5. Metoprolol 25 mg every 12 hours. 6. Acetaminophen 650 mg every 6 hours as needed. 7. Sensipar 60 mg b.i.d. 8. Docusate 100 mg b.i.d. 9. Folic acid with vitamin B complex 1 tablet daily. 10. Sevelamer 2400 mg t.i.d. with meals. PHYSICAL EXAMINATION: Current Vital Signs: Temperature of 97.5 degrees, pulse 70, respiratory rate 18, blood pressure 123/72, saturating 100% on room air. General: Ms. Tillman is not in any acute distress. HEENT: Oral cavity is moist. Lungs: Air entry bilaterally equal. No wheeze or rhonchi. She had crackles in bilateral infrascapular region. Cardiovascular: S1, S2 normal. No S3. Irregularly irregular. No murmur, rub, or gallop. Abdomen: Soft, nontender. Neck: No jugular venous distention. Extremities: She has bilateral lower extremity edema. She has left forearm AV fistula. Neurologic: She is alert and oriented x3. LABORATORY DATA: At the time of discharge, WBC 4.4, hemoglobin 10.7, platelets 116,000. PTT 79.8, INR 1.4. BUN 23, creatinine 4.8, potassium 3.8, sodium 137. Magnesium 2.3. Albumin is 3.7. MICROBIOLOGY: None. IMAGING DURING HOSPITAL ADMISSION: 1. Chest x-ray on 08/26/2019 had cardiomegaly and increased pulmonary vascular congestion. 2. Head CT performed for speech difficulty had chronic ischemic microvascular changes, without any evidence of acute disease. 3. Electrocardiogram on 08/26/2019 had atrial flutter with variable AV block, cannot rule out anteroseptal infarct, ST-T wave abnormality, consider inferolateral ischemia, prolonged QTc. 4. Electrocardiogram on 08/28/2019 had atrial flutter with 4:1 AV conduction block, cannot rule out anterior infarct, T-wave abnormality, consider inferolateral ischemia, prolonged QTc of 599. CONSULTATIONS DURING HOSPITAL ADMISSION: 1. Nephrology, Dr. Morfin. 2. Cardiology, Dr. Coronel. HOSPITAL COURSE SUMMARY: Ms. Tillman is an 79-year-old, lady, who presented on 08/26/2019 with chief complaints of shortness of breath and anxiety. Apparently, the patient was seen 4 days prior to presentation for trouble concentrating and headache and slurred speech. She was diagnosed with TIA, and she was advised to have followup with primary care provider. However, 4 days later, she came back again with shortness of breath and anxiety, without any chest pain or cough, so it was decided to admit her for further management. Initially on arrival, she was found to have temperature of 97.9 degrees, pulse of 94, respiratory rate of 20, blood pressure of 147/99, and her oxygen saturation was 99% on room air. Chest x-ray performed had pulmonary vascular congestion. On lab evaluation, she had WBC of 6000, hemoglobin 11.8. INR of 1.2. Her troponin was remarkably elevated to 473, and her CK-MB was 10.4. She was diagnosed with non ST- elevation myocardial infarction, and was admitted for further management. Her repeat EKG the next morning had persistent T-wave inversions and ST depressions affecting anterolateral leads. She was given a dose of stat aspirin, stat atorvastatin, and Cardiology had started her on intravenous heparin drip. She underwent dialysis on 08/27/2019, which she tolerated well. Her troponin showed declining trend from 473 on presentation to 357, which dropped down to 292 within almost 24 hours. Her echocardiogram was performed, the result of which was pending. After discussing her non ST-elevation myocardial infarction, Cardiology team had recommended transfer to [facility], which is underway. The patient was allowed to ask questions regarding her heart condition. All of her questions were answered. TIME SPENT: 35 minutes were spent in preparing this discharge summary. cc: Nas Maldonado MD MTDDaria
--- NOTE | 2019-08-28 13:33 | NEPHROLOGY PROGRESS NOTE ---
DATE: 08/28/2019 SUBJECTIVE: She is anxious today, and admits to some depression related to her recent symptoms. Currently, she is resting in bed without any shortness of breath or chest tightness, etc. OBJECTIVE: Vital Signs: Blood pressure 123/72, heart rate 70, respirations 18, afebrile. General: No acute distress. Skin: Warm and dry. Neck: Neck veins are not appreciated. Heart: Regular. Lungs: Equal. No crackles. Extremities: There is 1+ edema. IMPRESSION: Chronic kidney disease 5D. She tolerated her routine dialysis treatment yesterday. She is in target with regard to her volume status, acid-base/electrolytes/anemia. Okay for transfer to [place]. cc: Jerardo Morfin MD
[2019-08-28] MEDS ORDERED: LIPITOR PO SCH (21:00)
== END 2019-08-28 11:49 | disposition short-term general hospital (02) | DRG 280 ==
LOC: SUPCPDRO → ED 17:54 → SUATTDRO 08-27 00:14 → 3N 08-27 00:14 → 2N 08-27 17:39
PROVIDERS: ATTEND Internal Medicine